=== PATIENT | male | born 1950 | race Caucasian/White ===

== ENCOUNTER 2021-01-21 08:54 | Day surgery (SDC) | payer MEDICARE ==
[~2021-01-21] VITALS: Ht 170.2 cm; Wt 78.1 kg
[~2021-01-21 08:54] MED LIST: HYDROmorphone 2 MG/ML VIAL IVP PRN; IV RINGERS,LACTATED 1000ML 1,000 ML IV SCH; LORA10TA68 PO; MORPHINE SULFATE 2 MG/ML INJ. IVP PRN; MULT-697 PO; PROCHLORPERAZINE 10 MG/2 ML VIAL. IVP PRN; fentaNYL PF VIAL 100 MCG/2 ML VIAL IVP PRN
[2021-01-21] MEDS ORDERED: ONDANSETRON PF 4 MG/2 ML VIAL. ONE (09:15)
[2021-01-21] MEDS ORDERED: FAMOTIDINE 20 MG/2 ML VIAL ONE (09:15)
[2021-01-21] MEDS ORDERED: DEXAMETHASONE SOD PHOS 20 MG/5 ML VIAL. ONE (09:15)
[2021-01-21] MEDS ORDERED: fentaNYL PF VIAL 100 MCG/2 ML VIAL ONE ×2 (09:16→12:54)
[2021-01-21] MEDS ORDERED: BUPIVACAINE-EPI 0.5%-1:200000 MPF 30 ML VIAL. ONE (10:50)
[2021-01-21] MEDS ORDERED: PROPOFOL 10 MG/ML (20ML) VIAL. IV ONE (10:53)
[2021-01-21] MEDS ORDERED: ePHEDrine PF IN SALINE 50 MG/10 ML SYRINGE. IV ONE (12:09)
[2021-01-21] MEDS ORDERED: SEVOFLURANE 61 TO 120 MINUTES. IH ONE (12:09)
--- NOTE | 2021-01-21 12:41 | PDOC4 ---
Operative Note Operative Note Operative Note: Preoperative Diagnosis: Left inguinal hernia Postoperative Diagnosis: Same Procedure: Left inguinal hernia repair with mesh Surgeon: Vic Barrel Washer Machine: Jeremiah MARCELINO Anesthesia: General EBL: 20 mL Specimen: Hernia sac to pathology Drains: None Complications: None Indication: The patient is a 70-year-old male who was referred with left inguinal hernia. He was offered surgical repair. The risks of surgery were discussed which include bleeding, infection, recurrence, pain, anesthetic risk, urinary retention, potential need for additional surgery procedure. He understands and would like to proceed. Description: The patient was taken to the operating room and placed supine on the operating table. General anesthesia was performed. The left groin was shaved prepped with ChloraPrep and draped in standard surgical manner. An incision was made in the skin lines of left groin with a scalpel. Cautery dissection was carried down to the external beak aponeurosis. The aponeurosis was opened down to the external ring. The contents of the inguinal canal were digitally mobilized and encircled with a Roma drain. The vas deferens and other cord structures were identified and preserved. There is a moderate sized indirect hernia sac present. The sac was mobilized from the surrounding tissues down to its base. Due to the redundancy the much of the sac was excised and sent to pathology and the stump was oversewn with 2-0 Vicryl. The stump was inverted and the defect filled with an extra-large Phasix mesh plug. The plug was sutured around its periphery with 2-0 Vicryl. The entire inguinal floor was then reinforced with a Prolene keyhole mesh patch. The mesh was also sutured in place covering the inguinal floor with 2-0 Vicryl. The external oblique was closed over the mesh with 2-0 Vicryl. The subcutaneous tissue was approximated with 3-0 Vicryl. Skin was closed with 4-0 Monocryl and infiltrated with half percent Marcaine with epinephrine. Steri-Strips and a sterile dressing were applied. The patient tolerated the procedure well and was sent to the recovery room in stable condition. At the end of the case all counts were correct. HAL ABBOTT MD Jan 21, 2021 12:41
--- NOTE | 2021-01-21 12:43 | DISCH ---
DISCHARGE INSTRUCTIONS Condition on Discharge Condition on Discharge: Stable Activity After Discharge Activity Instructions for Disc: Other, see below (no lifting over 20 lbs X 4 weeks) Diet after Discharge Diet after Discharge: Regular Wound Incision Care Wound/Incision Care: Other, see below (keep dressing clean and dry X 72 hours, may then remove and shower) Follow-Up Follow up with: Dr Abbott in 2 weeks in office, call for appointment [phone] HAL ABBOTT MD Jan 21, 2021 12:43
[2021-01-21] MEDS ORDERED: HYDR-3068 PO (12:45)
[2021-01-21] MEDS: fentaNYL PF VIAL 100 MCG/2 ML VIAL IVP PRN ×2 (12:59→13:08)
[2021-01-21 13:42] VITALS: BP 168/85
[2021-01-21] MEDS ORDERED: HYDROcodone/APAP 5/325MG 1 TAB TABLET PO ONE (13:45)
--- NOTE | 2021-01-23 17:07 | PATHOLOGY ---
[facility] Accession Number: [id number] . 01 Material submitted: . inguinal area - LEFT INGUINAL HERNIA SAC. Modifiers: left . 01 Clinical history: . INGUINAL HERNIA REPAIR WITH MESH . 02 Diagnosis: Segments of focal mesothelial-lined fibromembranous and fibroadipose tissue, left inguinal hernia repair: - Hernia sac showing congestion and focal submesothelial reactive fibrosis. (JPM:michell; 01/23/2021) QMS 01/23/2021 1410 Local . 02 Electronically signed: . Matthieu Quezada MD, Pathologist NPI- [id number] . 01 Gross description: . The specimen is received in formalin, labeled "Tuan Garcia and left inguinal hernia sac". It consists of 2 doe-yellow, irregular, focally fatty fibromembranous soft tissue segment measuring 6.0 and 6.6 cm. Sectioning reveals doe-yellow rubbery cut surfaces. Graphics Editor sections are submitted in A1. (MRF; 01/22/2021) MFE/MFE 01/22/2021 2020 Local . 02 Pathologist provided ICD-10: K40.90 . 02 CPT . 313643 Specimen Comment: A courtesy copy of this report has been sent to [phone] Specimen Comment: Report sent to Performed at: 01 [facility] [address], [place] [id number] MD Anirudh Mejia MD Phone: [phone] Performed at: 02 [facility] [address], [place] [id number] MD Matthieu Quezada MD Phone: [phone]
== END 2021-01-21 14:13 | disposition home or self-care (01) ==
LOC: SURG 08:54
PROVIDERS: ATTEND Surgery
DX: K40.90 Unilateral inguinal hernia, without obstruction or gangrene, not specified as recurrent (principal); Z85.828 Personal history of other malignant neoplasm of skin; Z72.89 Other problems related to lifestyle; Z79.899 Other long term (current) drug therapy; Z98.890 Other specified postprocedural states; Z88.0 Allergy status to penicillin
CPT/HCPCS: 49505; A4364; A4930; A6402; C1781; J1100; J1956; J2405; J2704; J3010; J3490; A4452